=== PATIENT | female | born 1975 | race Two or more races ===

== ENCOUNTER 2018-12-15 04:06 | Emergency (ER) | payer OTHER ==
[~2018-12-15] VITALS: Ht 157.5 cm; Wt 80.0 kg
[2018-12-15] MEDS ORDERED: OMEP20 PO (04:16)
[2018-12-15 04:44] LABS: APPEARANCE,URINE CLOUDY (CLEAR); BILIRUBIN,URINE NEGATIVE (NEGATIVE); GLUCOSE, URINE (UA) NEGATIVE (NEGATIVE); KETONES,URINE NEGATIVE (NEGATIVE); LEUKOCYTE ESTERASE ,URINE NEGATIVE (NEGATIVE); NITRATE,URINE NEGATIVE (NEGATIVE); OCCULT BLOOD,URINE MODERATE (NEGATIVE); PH,URINE 5.5 (5.0-8.0); PROTEIN,URINE NEGATIVE (NEGATIVE); UROBILINOGEN,URINE 0.2 mg/dL (<=1.0)
[2018-12-15 04:51] LABS: ANION GAP 5 mmol/L (8-16); CALCIUM, TOTAL 8.8 mg/dL (8.8-10.5); CARBON DIOXIDE 27 mmol/L (22-29); CHLORIDE 104 mmol/L (98-107); CREATININE 0.62 mg/dL (0.60-1.30); GLOMERULAR FILTR. RATE CALC > 60 mL/min (>60); GLUCOSE,RANDOM 114 mg/dL (70-110); POTASSIUM 3.9 mmol/L (3.5-5.1); SODIUM SERUM 136 mmol/L (136-145); UREA NITROGEN, BLOOD 8 mg/dL (7-18)
[2018-12-15 04:52] LABS: BASOPHILS % (AUTO) 0.4 % (0.0-2.0); EOSINOPHILS % (AUTO) 0.9 % (1.0-6.0); HEMATOCRIT 38.2 % (36-46); HEMOGLOBIN 12.2 g/dL (12.0-16.0); LYMPHOCYTES # (AUTO) 1.8 K/uL (1.0-4.8); LYMPHOCYTES % (AUTO) 13.4 % (22.0-44.0); MEAN CORPUSCULAR HEMOGLOBIN 29.3 pg (26.0-34.0); MEAN CORPUSCULAR HGB CONC 31.8 G/dL (31.0-37.0); MEAN CORPUSCULAR VOLUME 92 fL (80-100); MONOCYTES # (AUTO) 0.9 K/uL (0.1-1.0); MONOCYTES % (AUTO) 6.6 % (2.0-9.0); NEUTROPHILS # (AUTO) 10.3 K/uL (1.8-7.7); NEUTROPHILS % (AUTO) 78.7 % (40.0-70.0); PLATELET COUNT (AUTO) 398 K/uL (150-450); RED BLOOD CELL COUNT(AUTO) 4.15 MIL/uL (4.00-5.20)
[2018-12-15 04:57] LABS: ALANINE AMINOTRANSFERASE 20 U/L (12-78); ALBUMIN 3.2 g/dL (3.4-5.0); ALKALINE PHOSPHATASE 120 U/L (46-116); ASPARTATE AMINOTRANSFERASE 13 U/L (15-37); BILIRUBIN,TOTAL 0.5 mg/dL (0.1-1.0); LIPASE 79 U/L (73-393); TOTAL PROTEIN, SERUM 7.9 g/dL (6.4-8.2)
[2018-12-15 05:00] LABS: BACTERIA,URINE Few /HPF (None Seen); MUCUS,URINE Moderate LPF (None Seen); SQUAMOUS EPITHELIAL CELL,UR Moderate /LPF (None Seen)
[2018-12-15 05:14] LABS: HCG,QUANTITATIVE < 1 mIU/mL (0-6)
[2018-12-15] MEDS ORDERED: SODIUM CHLORIDE 0.9% 100 ML ONE (06:23)
[2018-12-15] MEDS ORDERED: IOVERSOL 320 MG/ML 100 ML VIAL ONE (06:23)
[2018-12-15] MEDS: SODIUM CHLORIDE 0.9% 1,000 ML IV ONE (06:35)
[2018-12-15] MEDS: ONDANSETRON HCL 4 MG/2 ML VIAL IVP ONE ×2 (06:35→09:51)
[2018-12-15] MEDS: MORPHINE SULFATE 2 MG/ML SYRINGE IVP ONE (06:36)
[2018-12-15 06:43] LABS: AMYLASE 46 U/L (25-115)
[2018-12-15] MEDS: PANTOPRAZOLE SODIUM 40 MG/VIAL IVP ONE (09:50)
[2018-12-15] MEDS: MORPHINE SULFATE 4 MG/ML SYRINGE IVP ONE (09:51)
[2018-12-15 10:00] VITALS: BP 130/67
== END 2018-12-15 10:17 | disposition home or self-care (01) ==
LOC: EMS 04:09
DX: K29.70 Gastritis, unspecified, without bleeding (principal); K29.80 Duodenitis without bleeding
CPT/HCPCS: 36415; 74177; 80053; 81001; 82150; 83690; 84702; 85025; 96374; 96375; 96376; 99284; C9113; J2270 ×2; J2405; J7030; J7050; Q9967